=== PATIENT | male | born 1950 | race Caucasian/White ===

== ENCOUNTER → 2020-03-20 | Outpatient (CLI) | payer OTHER ==
[~2020-03-20] MED LIST: ASA81BEC PO; FISH OIL 1,001000 M3 PO; FLUTICASONE PRO16 GM NASAL; LEVOTHYROXINE50 MCG PO; LISINOPRIL-HCT1 EAC1 PO; PROTONIX40 M2 PO; ROSUVASTATIN CA10 MG PO
== END ==
LOC: LAB 13:01
PROVIDERS: ATTEND Ophthalmology
DX: Z01.812 Encounter for preprocedural laboratory examination (principal); Z20.828 Contact with and (suspected) exposure to other viral communicable diseases; R05 Cough; R06.02 Shortness of breath; J02.9 Acute pharyngitis, unspecified; R43.8 Other disturbances of smell and taste

== ENCOUNTER 2020-03-23 06:06 | Day surgery (SDC) | payer OTHER ==
[~2020-03-23] VITALS: Ht 172.7 cm; Wt 91.6 kg
--- NOTE | ~2020-03-23 | O ---
[facility] [place] [address] OPERATIVE REPORT Name: LACY SANCHEZ Rafael Room #: DEP [facility]#: [id number] Admission: 03/23/20 Attend Phys: Vel Christian MD Discharge: 03/23/20 Date of : 46 Report #: [id number] THIS REPORT FOR: cc: Paul Barkley MD,Paul Christian,Vel Romo MD ~ CC: Stanley Christian DATE OF SERVICE: 03/23/2020 SURGEON: Vel Christian MD HADOOP ARCHITECT: None. PREOPERATIVE DIAGNOSIS: Bilateral lower lid ectropion. POSTOPERATIVE DIAGNOSIS: Bilateral lower lid ectropion. OPERATION PERFORMED: Bilateral lower lid ectropion repair. ANESTHESIA: Local with IV sedation. COMPLICATIONS: None. INDICATIONS FOR PROCEDURE: This patient has bilateral acquired lower lid ectropion with chronic tearing, keratopathy and discharge. The current procedures are undertaken in order to improve the patient's visual function, lacrimal outflow, and level of comfort. Informed consent was obtained to include but not limit to the risk of loss of vision, bleeding, infection, scarring, failure to improve the problem and need for further surgery. DESCRIPTION OF OPERATION: The patient was taken to the operating room where 2% Xylocaine with epinephrine mixed with equal parts of 0.75% Marcaine with Wydase was administered transcutaneously and transconjunctivally to each lower lid and lateral canthal area. The patient was then prepped and draped in the usual sterile fashion. A Kim clamp was then used to clamp the left lateral canthus following which a sharp canthotomy and cantholysis were performed. The tarsal strip was prepared laterally, removing the lash bearing portion of the redundant lid margin and the redundant tarsal plate. Hemostasis was achieved with a monopolar cautery, as it was throughout the case. The tarsal strip was then secured to the internal portion of the lateral orbital tubercle with two interrupted 5-0 Prolene sutures. The lateral canthal angle was sharply reformed as the subcutaneous structures and the skin were closed with multiple [facility] [address] [place] [address] OPERATIVE REPORT Name: LACY SANCHEZ Room #: DEP [facility].#: [id number] Admission: 03/23/20 Attend Phys: Vel Christian MD Discharge: 03/23/20 Date of : 46 Report #: [id number] interrupted 6-0 plain gut sutures. Attention was then turned to the right side where the same procedure was performed. The wounds were cleaned and dressed with ophthalmic antibiotic ointment. The patient was then transported to the recovery area, having tolerated the procedure well with no anesthetic or operative complications being noted. By: [id number] Vel Christian MD /nt
[2020-03-23 07:25] VITALS: BP 105/80
== END 2020-03-23 08:35 | disposition home or self-care (01) ==
LOC: OR 06:06 → TBA 06:07 → OR 08:35
PROVIDERS: ATTEND Ophthalmology
DX: H02.105 Unspecified ectropion of left lower eyelid (principal); H02.102 Unspecified ectropion of right lower eyelid; I10 Essential (primary) hypertension; E78.5 Hyperlipidemia, unspecified; K21.9 Gastro-esophageal reflux disease without esophagitis; E03.9 Hypothyroidism, unspecified; Z98.890 Other specified postprocedural states; Z79.899 Other long term (current) drug therapy; Z98.62 Peripheral vascular angioplasty status; Z96.651 Presence of right artificial knee joint; Z90.49 Acquired absence of other specified parts of digestive tract
CPT/HCPCS: 50010; 50101; 50386; 50398; 51636; 56527; 56531; 62110; 62850; 70005

== ENCOUNTER → 2020-04-17 | Outpatient (CLI) | payer OTHER | LOC: LAB 10:04 | PROVIDERS: ATTEND Ophthalmology | DX: Z01.812 Encounter for preprocedural laboratory examination (principal); Z20.828 Contact with and (suspected) exposure to other viral communicable diseases ==

== ENCOUNTER 2020-04-20 06:02 | Day surgery (SDC) | payer OTHER ==
[~2020-04-20] VITALS: Ht 170.2 cm; Wt 90.7 kg
[2020-04-20 06:54] LABS: CALCIUM 9.4 mg/dL (8.5-10.1); CREATININE 1.2 mg/dL (0.7-1.3)
[2020-04-20 07:00] VITALS: BP 135/87
--- NOTE | 2020-04-24 06:21 | O ---
[facility] [place] [address] OPERATIVE REPORT Name: DANIELLACY Hall Room #: DEP [facility]#: [id number] Admission: 04/20/20 Attend Phys: Vel Christian MD Discharge: 04/20/20 Date of : 46 Report #: [id number] THIS REPORT FOR: cc: Paul Barkley MD,Paul Christian,Vel Romo MD ~ CC: Dr. Stanley Christian DATE OF SERVICE: 04/20/2020 SURGEON: Vel Christian MD LOCKSTITCH SLEEVE MAKER: None. PREOPERATIVE DIAGNOSIS: Bilateral upper lid dermatochalasia with superior visual field defect. POSTOPERATIVE DIAGNOSIS: Bilateral upper lid dermatochalasia with superior visual field defect. OPERATION PERFORMED: Bilateral upper lid functional blepharoplasty. ANESTHESIA: Local with IV sedation. COMPLICATIONS: None. INDICATIONS FOR SURGERY: This patient has acquired upper lid dermatochalasia with superior visual field loss both eyes because of excessive upper lid tissues to include skin and fat. Visual field testing demonstrates dense superior visual defects. Retesting with the upper lid elevated shows an improvement in visual field loss of over 30% and in excess of 12 degrees. The current procedures are undertaken in order to improve the patient's visual function. Informed consent was obtained to include but not limited to the loss of vision, bleeding, infection, scarring, failure to improve the problem and need for further surgery. DESCRIPTION OF OPERATION: The patient was taken to the operating room, where 2% Xylocaine with epinephrine mixed with equal parts of 0.75% Marcaine with Wydase was administered transcutaneously to each upper lid. The patient was then prepped and draped in the usual sterile fashion and a skin-marking pen was then utilized to outline an upper lid crease that was symmetrical on each side. Graefe forceps were then used to quantitate the redundant upper lid skin and it [address] [address] OPERATIVE REPORT Name: LACY SANCHEZ Room #: DEP [facility].#: [id number] Admission: 04/20/20 Attend Phys: Vel Christian MD Discharge: 04/20/20 Date of : 46 Report #: [id number] was similarly outlined. The incisions were then made with Orly scissors and a skin-muscle flap removed from each side with high-temp cautery. Hemostasis was achieved with the monopolar cautery as it was throughout the case. The orbital septum was then identified and the central and medial fat pads were inspected. The redundant soft tissue was then sculpted with the monopolar cautery. The upper lid crease was then reformed with tightening of the pretarsal orbicularis muscle. The upper lid crease was then further reformed with multiple interrupted 6-0 chromic sutures. The skin was then closed with a running 6-0 plain gut suture. The wound was then cleaned and dressed with ophthalmic antibiotic ointment and a nonstick dressing. The patient was transported to the recovery area, where cold compresses were applied, having tolerated the procedure well with no anesthetic or operative complications being noted. <ELECTRONICALLY SIGNED> By: Vel Christian MD 04/24/20 0621 [id number] Vel Christian MD /nt
== END 2020-04-20 08:25 | disposition home or self-care (01) ==
LOC: OR 06:02 → TBA 06:02 → OR 08:25
PROVIDERS: ATTEND Ophthalmology
DX: H02.834 Dermatochalasis of left upper eyelid (principal); H02.831 Dermatochalasis of right upper eyelid; H53.462 Homonymous bilateral field defects, left side; H53.461 Homonymous bilateral field defects, right side; I10 Essential (primary) hypertension; E78.5 Hyperlipidemia, unspecified; K21.9 Gastro-esophageal reflux disease without esophagitis; E03.9 Hypothyroidism, unspecified; Z96.641 Presence of right artificial hip joint; Z90.49 Acquired absence of other specified parts of digestive tract; Z98.52 Vasectomy status; Z98.890 Other specified postprocedural states; Z79.899 Other long term (current) drug therapy
CPT/HCPCS: 50010; 50101; 50386; 50398; 51636; 56531; 62110; 62850; 70005